=== PATIENT | female | born 1955 | race Caucasian/White ===

== ENCOUNTER → 2022-04-06 | Outpatient (CLI) | payer MEDICARE, OTHER ==
[~2022-04-06] MED LIST: ATORVASTATIN CA10 MG PO; LISINOPRIL20 MG PO; LOPRESSOR 50 MG50 MG PO; PRILOSEC OTC20 MG PO
[2022-04-06 12:18] LABS: HEMOGLOBIN 12.8 gm/dl (12.3-15.3); RED BLOOD COUNT 4.11 M/UL (4.00-5.10); WHITE BLOOD COUNT 4.9 K/UL (4.5-11.0)
[2022-04-06 12:53] LABS: BUN/CREATININE RATIO 10 (0-10)
== END ==
LOC: OPSV2 03-30 12:30 → EDSTATUS 04-20 10:00 → OPSV2 04-20 10:00
PROVIDERS: Orthopaedic Surgery
DX: Z01.818 Encounter for other preprocedural examination (principal); M17.11 Unilateral primary osteoarthritis, right knee
CPT/HCPCS: 36415; 80048; 85025; 93005

== ENCOUNTER → 2022-04-19 | Outpatient (CLI) | payer MEDICARE, OTHER ==
[~2022-04-19] MED LIST changes: +ASPIR-TRIN325 MG PO; +HYDROCODON-ACE1 EAC6 PO
[2022-04-19 12:09] LABS: BUN/CREATININE RATIO 12 (0-10)
== END ==
LOC: LAB 10:47
PROVIDERS: Orthopaedic Surgery
DX: Z01.812 Encounter for preprocedural laboratory examination (principal)
CPT/HCPCS: 36415; 80048; 86850; 86900; 86901